=== PATIENT | female | born 1970 | race Caucasian/White ===

== ENCOUNTER → 2018-07-23 15:15 | Outpatient (CLI) | payer OTHER, MEDICAID, SELFPAY ==
--- NOTE | 2018-07-23 | DI.MRI.S_ITS ---
PROCEDURE: MR FOOT RT WO CON INDICATIONS: PAIN IN RIGHT FOOT/TOES TECHNIQUE: Noncontrast sagittal T1 spin echo and T2 fast spin echo with fat saturation, long-axis T1 spin echo and T2 fast spin echo with fat saturation, short-axis T1 spin echo and T2 fast spin echo with fat saturation through the forefoot. COMPARISON: None. FINDINGS: Image quality: Excellent. Bones and joints: There is mild hallux valgus. No acute fracture or dislocation. No dislocation or subluxation is seen in the fifth toe. No bone marrow contusions or metatarsal stress fractures. The sesamoid bones appear in expected positions, without internal edema. Mild first MTP joint osteoarthritic changes are seen with joint space narrowing and subchondral sclerosis. Small amount of fluid is also noted within first through fifth MTP joints as well as first interphalangeal joint. No intra-articular loose body is seen. No intraosseous lesions. Soft tissues: The visualized plantar foot muscles demonstrate normal signal and bulk. Visualized flexor and extensor tendons appear intact, without tenosynovitis. The distal insertions of the peroneus brevis and longus tendons appear intact. The principal Lisfranc ligament appears intact. No soft tissue ganglion cysts or bursal fluid collections. Sagittal images demonstrate no evidence for plantar plate tears. IMPRESSION: 1. Mild hallux valgus and first MTP joint osteoarthritis. Physiologic amount of fluid within MTP joints and first interphalangeal joint. No fracture or dislocation. No evidence of fifth digit subluxation or dislocation. 2. Lisfranc ligament and joint is intact. No right foot tendon or ligament pathology. Dictated by: Tyrone Heath M.D. on 07/24/2018 at 9:31 Approved by: Tyrone Heath M.D. on 07/24/2018 at 9:48
== END ==
PROVIDERS: Visit Provider Podiatrist
DX: M79.671 Pain in right foot (principal); M79.674 Pain in right toe(s); M20.11 Hallux valgus (acquired), right foot; M19.071 Primary osteoarthritis, right ankle and foot
CPT/HCPCS: 73718

== ENCOUNTER 2021-02-06 14:49 | Emergency (ER) | payer OTHER, MEDICAID, SELFPAY ==
[2021-02-06 14:53] VITALS: BP 158/67; PULSE 75; RESP 22; TEMP 37.2; O2SAT 95
[2021-02-06] MEDS: FAMOTIDINE 20 MG/2 ML VIAL IV (15:18)
[2021-02-06] MEDS: methylPREDNISolone 125 MG/2 ML VIAL IV (15:18)
[2021-02-06] MEDS: diphenhydrAMINE 50 MG/ML VIAL 25 MG IV (15:18)
--- NOTE | 2021-02-06 15:35 | ED.ALLEREA ---
HPI - Allergic Reaction General Chief complaint: Allergic Reaction Stated complaint: allergic reaction to medication Time Seen by Provider: 02/06/21 15:07 Source: patient Mode of arrival: Ambulatory History of Present Illness HPI narrative: This is a 51-year-old female who comes in with complaint of allergic reaction to Bactrim. Patient has been taking it for the past 7 days. Today was her 7th day. She is taking it for UTI patient states she has never had a reaction in the past. She has taken it on prior episodes. She has no known drug allergies. She does take bupropion daily. Patient denies any major medical issues. She has had breast augmentation but no other prior surgeries. Patient did take Benadryl 50 mg about 7:00 a.m. this morning and had some mild improvement but not significant and started have some recurrent. She states she developed eyes, itching over and some swelling of her lips. Related Data Home Medications Medication Instructions Recorded Confirmed loratadine 10 mg tablet (Claritin) 10 mg PO BID #0 03/18/12 BORON/CA/CU/MG/MN/VIT D/ZINC 1 tab PO BID #0 03/23/12 (#CALCIUM 600 + MINERALS) BUPROPION HCL (WELLBUTRIN XL) 150 mg PO BID #0 03/23/12 dicyclomine 10 mg capsule 10 mg PO QDAY #0 10/22/16 Previous Rx's Medication Instructions Recorded acyclovir 400 mg tablet 400 mg PO TID #15 tab 01/28/17 famotidine 20 mg tablet (Pepcid) 20 mg PO BID #10 tab 02/06/21 famotidine 20 mg tablet (Pepcid) 20 mg PO BID #10 tab 02/06/21 famotidine 20 mg tablet (Pepcid) 20 mg PO BID #10 tab 02/06/21 prednisone 50 mg tablet 50 mg PO DAILY #5 tab 02/06/21 prednisone 50 mg tablet 50 mg PO DAILY #5 tab 02/06/21 prednisone 50 mg tablet 50 mg PO DAILY #5 tab 02/06/21 Allergies Allergy/AdvReac Type Severity Reaction Status Date / Time sulfamethoxazole Allergy Verified 02/06/21 15:16 [From Bactrim] trimethoprim [From Bactrim] Allergy Verified 02/06/21 15:16 Review of Systems Review of Systems ROS Unobtainable: All systems reviewed & are unremarkable except as noted in HPI and below Patient History Surgical History History of breast augmentation Status post surgery (03/23/12) Exam Narrative Exam Narrative: GEN: well nourished, well appearing female, alert and oriented x 3, patient appears to be in mild distress. HEENT: Atraumatic, pupils are equal round reactive to light, extraocular movements are intact, nares are clear, TMs are clear with no fluid, there is no conjunctival pallor. Throat is clear without any exudates, erythema, tonsillar enlargement or uvular deviation, patient has some mild swelling of the lips, no intraoral mucosal involvement, no swelling of the tongue, no hoarseness, no stridor. HEART: Regular rate and rhythm without murmur, clicks, rubs. LUNGS:Lungs clear to auscultation, no wheezes, rales, crackles, chest moves symmetrically ABD:bowel sounds normal, soft, non-tender, no guarding, rebound, rigidity, no masses noted, no hepatosplenomegaly MSCL: Non-tender, no muscle atrophy, muscles strength 5/5 upper and lower extremities, full range of motion, normal gait NEURO:CN 2-12 intact, sensation normal SKIN: Patient does have some erythema and hives on her torso, extremities as well as forehead. Initial Vital Signs Initial Vital Signs: Vital Signs Temperature 99.0 F 02/06/21 14:53 Pulse Rate 75 02/06/21 14:53 Respiratory Rate 22 02/06/21 14:53 Blood Pressure 158/67 H 02/06/21 14:53 Pulse Oximetry 95 02/06/21 14:53 Course Orders Ordered: Discontinued Medications Diphenhydramine HCl (Diphenhydramine 25 Mg Tablet) 50 mg PO NOW ONE Stop: 02/06/21 15:08 Diphenhydramine HCl (Diphenhydramine 50 Mg/Ml Vial) 25 mg IV NOW ONE Stop: 02/06/21 15:10 Last Admin: 02/06/21 15:18 Dose: 25 mg Documented by: LUCILLE Famotidine (Famotidine 20 Mg/2 Ml Vial) 20 mg IV NOW GARETT Last Admin: 02/06/21 15:18 Dose: 20 mg Documented by: LUCILLE Methylprednisolone (Methylprednisolone 125 Mg/2 Ml Vial) 125 mg IV NOW ONE Stop: 02/06/21 15:10 Last Admin: 02/06/21 15:18 Dose: 125 mg Documented by: LUCILLE Prednisone (Prednisone 20 Mg Tablet) 60 mg PO NOW ONE Stop: 02/06/21 15:08 Reevaluation(s) Reevaluation #1: Patient appears improved and states she feels improved although she still does have hives present on recheck. Time: 16:12 Vital Signs Vital signs: Vital Signs - 8 hr 02/06/21 14:53 02/06/21 16:09 Temperature 99.0 F Pulse Rate 75 76 Respiratory Rate 22 16 Blood Pressure 158/67 H 122/58 L Pulse Oximetry 95 99 MDM - Allergic Reaction MDM Narrative Medical decision making narrative: Patient with allergic reaction which does not appear to be helpful lactic. Patient was recently on Bactrim she was just completing a course. Patient was given, Benadryl and Pepcid here she has pretty significant hives throughout but does not have any airway involvement at this time. She does complain of a little bit of facial swelling. She had improvement with medications here. Discharge Plan Departure Patient Disposition: Home Clinical Impression: Allergic reaction due to antibacterial drug Instructions: DI for Adverse Drug Reaction -- Allergic Activity Restrictions/Additional Instructions: Stop taking your Bactrim and avoid in the future. Continue prednisone once daily x5 days. Take Pepcid twice daily x5 days until gone. Prescription changed from [facility] to [facility] in [place]. You may take Benadryl 1-2 tablets every 6-8 hours as needed for symptoms as well. Return if you are having new or worsening swelling of your lips, mouth, or airway, chest pain or shortness of breath, wheezing, persistent vomiting, diarrhea or other new or concerning symptoms. Prescriptions: New prednisone 50 mg tablet 50 mg PO DAILY Qty: 5 RF: 0 famotidine [Pepcid] 20 mg tablet 20 mg PO BID Qty: 10 RF: 0 famotidine [Pepcid] 20 mg tablet 20 mg PO BID Qty: 10 RF: 0 prednisone 50 mg tablet 50 mg PO DAILY Qty: 5 RF: 0 famotidine [Pepcid] 20 mg tablet 20 mg PO BID Qty: 10 RF: 0 prednisone 50 mg tablet 50 mg PO DAILY Qty: 5 RF: 0 No Action loratadine [Claritin] 10 MG tablet 10 mg PO BID Qty: 0 RF: 0 BORON/CA/CU/MG/MN/VIT D/ZINC (#CALCIUM 600 + MINERALS) 1 tab PO BID Qty: 0 RF: 0 BUPROPION HCL (WELLBUTRIN XL) 150 mg PO BID Qty: 0 RF: 0 dicyclomine 10 MG capsule 10 mg PO QDAY Qty: 0 RF: 0 acyclovir 400 MG tablet 400 mg PO TID Qty: 15 RF: 6
[2021-02-06 16:09] VITALS: BP 122/58; PULSE 76; RESP 16; O2SAT 99
== END 2021-02-06 16:10 | disposition home or self-care (01) ==
PROVIDERS: Emergency Provider Emergency Medicine
DX: R22.0 Localized swelling, mass and lump, head (principal); T36.95XA Adverse effect of unspecified systemic antibiotic, initial encounter
CPT/HCPCS: 36415; 96374; 96375; 99284; J1200; J2930

== ENCOUNTER → 2021-07-19 14:23 | Outpatient (CLI) | payer OTHER, MEDICAID, SELFPAY | PROVIDERS: Visit Provider Student in an Organized Health Care Education/Training Program | DX: N34.3 Urethral syndrome, unspecified (principal) | CPT/HCPCS: 81002; 87077; 87086; 87186 ==

== ENCOUNTER → 2021-08-13 11:49 | Outpatient (CLI) | payer OTHER, MEDICAID, SELFPAY | PROVIDERS: Visit Provider Physician Assistant | DX: N30.01 Acute cystitis with hematuria (principal) | CPT/HCPCS: 81002; 87086 ==

== ENCOUNTER → 2022-12-04 14:11 | Outpatient (CLI) | payer OTHER, MEDICAID, SELFPAY ==
--- NOTE | 2022-12-04 14:18 | DI.RAD.S_ITS ---
PROCEDURE: XR FOOT LT MIN 3V INDICATIONS: FOOT PAIN TECHNIQUE: 3 views of the foot were acquired. COMPARISON: [facility], , XR FOOT 3 VIEWS WEIGHT BEARING RIGHT, 11/09/2018, 14:28. FINDINGS: Bones: No fractures or dislocations. No suspicious bony lesions. Soft tissues: No tibiotalar joint effusion. Achilles tendon appears normal. IMPRESSION: No acute radiographic findings. If pain persists, followup imaging in 5-7 days is recommended to exclude occult fracture. Dictated by: Rita Matamoros M.D. on 12/04/2022 at 17:16 Approved by: Rita Matamoros M.D. on 12/04/2022 at 17:17
== END ==
PROVIDERS: PCP Nurse Practitioner Family; Referring Provider Nurse Practitioner Family; Visit Provider Nurse Practitioner Family
DX: M79.672 Pain in left foot (principal)
CPT/HCPCS: 73630

== ENCOUNTER 2022-12-29 13:23 | Emergency (ER) | payer OTHER, MEDICAID, SELFPAY ==
[2022-12-29 13:53] VITALS: BP 126/74; PULSE 78; RESP 20; TEMP 36.7; O2SAT 98; BMI 31.3
--- NOTE | 2022-12-29 15:17 | ED.EAR ---
HPI - Ear Problem <Kike Ambrose PA-C - Last Filed: 12/29/22 15:30> General Chief complaint: Ear Stated complaint: possible ear infection R/ side Time Seen by Provider: 12/29/22 15:16 Source: patient Mode of arrival: Ambulatory History of Present Illness HPI Narrative: This is a 52-year-old female complaining of 1-1/2 weeks of right ear pain. Patient denies any discharge from the ear. Does have a history of allergies. Reports some mild dizziness secondary to the pain as well. Denies any fevers or any other concerning signs or symptoms. Related Data Home Medications Medication Instructions Recorded Confirmed loratadine 10 mg tablet (Claritin) 10 mg PO BID ##0 03/18/12 BORON/CA/CU/MG/MN/VIT D/ZINC 1 tab PO BID ##0 03/23/12 (#CALCIUM 600 + MINERALS) BUPROPION HCL (WELLBUTRIN XL) 150 mg PO BID ##0 03/23/12 dicyclomine 10 mg capsule 10 mg PO QDAY ##0 10/22/16 Previous Rx's Medication Instructions Recorded acyclovir 400 mg tablet 400 mg PO TID #15 tabs 01/28/17 famotidine 20 mg tablet (Pepcid) 20 mg PO BID #10 tabs 02/06/21 amoxicillin 875 mg-potassium 1 tab PO BID #10 tabs 12/29/22 clavulanate 125 mg tablet fluticasone propionate 50 1 spray intranasal BID #16 grams 12/29/22 mcg/actuation nasal spray,suspension (Flonase Allergy Relief) pseudoephedrine HCl 30 mg tablet 30 mg PO Q4-6H PRN nasal 12/29/22 (Sudafed) congestion #20 tabs Allergies Allergy/AdvReac Type Severity Reaction Status Date / Time sulfamethoxazole Allergy Verified 12/29/22 13:56 [From Bactrim] trimethoprim [From Bactrim] Allergy Verified 12/29/22 13:56 Review of Systems <Kike Ambrose PA-C - Last Filed: 12/29/22 15:30> Review of Systems Narrative: GENERAL: Denies chills, fatigue, malaise, fever, sweats. HEENT: Reports right ear pain, Denies sinus pain, sore throat, difficulty swallowing, dizziness. RESPIRATORY: Denies dyspnea, cough, wheezing, hemoptysis, sputum. CARDIOVASCULAR: Denies chest pain, palpitations, orthopnea, edema, GASTROINTESTINAL: Denies nausea, vomiting, abdominal pain, diarrhea, constipation, melena. : Denies dysuria, frequency, incontinence, hematuria, urinary retention. MUSCULOSKELETAL: denies weakness, joint pain, or bony pain SKIN: Denies rash, skin lesions, or other NEUROLOGIC: Denies weakness, headache, numbness, change in speech, confusion, seizures, incoordination. PSYCHIATRIC: No concerning psychosocial issues. 12 point review of systems is negative except for those stated above Patient History <Kike Ambrose PA-C - Last Filed: 12/29/22 15:30> Surgical History History of breast augmentation Status post surgery (03/23/12) Social History Smoking Status: Never smoker Smoking Status: Never smoker alcohol intake frequency: holidays/special occasions only Substance Use Type: does not use Exam <Kike Ambrose PA-C - Last Filed: 12/29/22 15:30> Narrative Exam Narrative: GENERAL: Well-developed patient, in mild distress. HEAD: Atraumatic. Normocephalic. EYES: Pupils equal round and reactive. Extraocular motions intact. No scleral icterus. No injection or drainage. ENT: Right TM bulging with mild erythema, left TM bulging and dull as well. NECK: Trachea midline. Non tender CARDIOVASCULAR: Regular rate and rhythm without murmurs, gallops, or rubs. RESPIRATORY: Clear to auscultation. Breath sounds equal bilaterally. No wheezes, rales, or rhonchi. GASTROINTESTINAL: Abdomen soft, non-tender, nondistended. EXTREMITIES: No edema or joint tenderness. BACK: Nontender without deformity or crepitance. No flank tenderness. NEURO: AOx3. SKIN: No rash or erythema of visible areas Initial Vital Signs Initial Vital Signs: Vital Signs Temperature 98.1 F 12/29/22 13:53 Pulse Rate 78 12/29/22 13:53 Respiratory Rate 20 12/29/22 13:53 Blood Pressure 126/74 12/29/22 13:53 Pulse Oximetry 98 12/29/22 13:53 Oxygen Delivery Method Room Air 12/29/22 13:53 <Francisco Alexander DO - Last Filed: 12/29/22 15:33> Initial Vital Signs Initial Vital Signs: Vital Signs Temperature 98.1 F 12/29/22 13:53 Pulse Rate 78 12/29/22 13:53 Respiratory Rate 20 12/29/22 13:53 Blood Pressure 126/74 12/29/22 13:53 Pulse Oximetry 98 12/29/22 13:53 Oxygen Delivery Method Room Air 12/29/22 13:53 Course <Kike Ambrose PA-C - Last Filed: 12/29/22 15:30> Vital Signs Vital signs: Vital Signs - 8 hr 12/29/22 13:53 Temperature 98.1 F Pulse Rate 78 Respiratory Rate 20 Blood Pressure 126/74 Pulse Oximetry 98 Oxygen Delivery Method Room Air <Francisco Alexander DO - Last Filed: 12/29/22 15:33> Vital Signs Vital signs: Vital Signs - 8 hr 12/29/22 13:53 Temperature 98.1 F Pulse Rate 78 Respiratory Rate 20 Blood Pressure 126/74 Pulse Oximetry 98 Oxygen Delivery Method Room Air Medical Decision Making <Kike Ambrose PA-C - Last Filed: 12/29/22 15:30> MDM Narrative Medical decision making narrative: MDM * differential diagnosis includes but not limited to Otitis media, otitis externa, perforated, eustachian tube dysfunction * Prior records reviewed: patient has not been here in the past * My lab interpretation: none obtained * My imaging interpretation: none obtained * Clinical Decision Rules/Scores evaluated: None * Independent discussions with: None ED Course: This is a 52-year-old female presents emergency department due to suspected otitis media as well as moderate effusion bilaterally. We will treat with oral antibiotics as well as nasal decongestants. No evidence of otitis externa or mastoiditis. Shared Decision Making: Discussed plan with the patient who is comfortable with the plan. Social Considerations: None Disposition: Discharged home Additional Information: [facility] Discharge Plan Departure Patient Disposition: Home Clinical Impression: Otitis media Instructions: Middle Ear Infection Activity Restrictions/Additional Instructions: Thank you for coming to the [facility] Emergency Department today. Please take the antibiotics as prescribed. I have also prescribed Flonase as well as Sudafed to help with any kind of congestion in your inner ear which may be causing pain and pressure. I hope you feel better soon. Please follow up with your primary care provider within a week. If you do not have a primary care provider please contact the [facility] Resource line at [phone]. They will ask some questions about your medical history and help you get set up with a provider in the community. Prescriptions: New amoxicillin-pot clavulanate 875-125 mg tablet 1 tab PO BID Qty: 10 0RF fluticasone propionate [Flonase Allergy Relief] 50 mcg/actuation spray,suspension 1 spray intranasal BID Qty: 16 0RF Rx Instructions: administer into each nostril pseudoephedrine HCl [Sudafed] 30 mg tablet 30 mg PO Q4-6H PRN (Reason: nasal congestion) Qty: 20 0RF Rx Instructions: DNExceed 4 doses/24h No Action loratadine [Claritin] 10 MG tablet 10 mg PO BID Qty: 0 BOR[place]/CA/CU/MG/MN/VIT D/ZINC (#CALCIUM 600 + MINERALS) 1 tab PO BID Qty: 0 BUPROPION HCL (WELLBUTRIN XL) 150 mg PO BID Qty: 0 dicyclomine 10 MG capsule 10 mg PO QDAY Qty: 0 acyclovir 400 MG tablet 400 mg PO TID Qty: 15 6RF famotidine [Pepcid] 20 mg tablet 20 mg PO BID Qty: 10 0RF Referrals: Marlee Thomas RN [Primary Care Provider] - Stand Alone Forms: Patient Portal/API <Francisco Alexander, DO - Last Filed: 12/29/22 15:33> [facility] Dr Alexander Co-Sign Statement: I was available for consultation during this patient's emergency department visit. This chart is signed by myself for administrative purposes only. I did not have direct contact with this patient during this visit. They were seen independently by the APC.
[2022-12-29 15:43] VITALS: PULSE 78; RESP 20; O2SAT 100
== END 2022-12-29 15:47 | disposition home or self-care (01) ==
PROVIDERS: Emergency Provider Physician Assistant Medical; PCP Nurse Practitioner Family
DX: H66.91 Otitis media, unspecified, right ear (principal)
CPT/HCPCS: 99281; 99283